=== PATIENT | female | born 1985 | race Caucasian/White ===

== ENCOUNTER → 2018-04-03 15:03 | Outpatient (CLI) | payer SELFPAY ==
[2018-04-03 17:34] LABS: Anion Gap 8 (5-15); BUN 15 mg/dL (7-18); BUN/Creat Ratio 20.8 RATIO (10-20); Calcium,Total 9.1 mg/dL (8.5-10.1); Chloride 104 mmol/L (98-107); Cholesterol 191 mg/dL (200); Creatinine, Serum 0.72 mg/dL (0.55-1.02); EST Glomerular Filtration Rate 101 mL/min (>60); Est Glom Filt Rate - Afr Amer 122 mL/min (>60); Glucose 73 mg/dL (74-106); High Density Lipoprotein 63 mg/dL; Potassium 3.4 mmol/L (3.5-5.1); Sodium Level 138 mmol/L (136-145); Thyroid Stim Hormone (TSH) 0.81 uIU/mL (0.358-3.74); Triglycerides 44 mg/dL; Very Low Density Lipoprotein 9 mg/dL (5-40)
== END ==
PROVIDERS: Family Provider Internal Medicine; PCP Internal Medicine; Visit Provider Family Medicine
DX: Z00.00 Encounter for general adult medical examination without abnormal findings (principal)
CPT/HCPCS: 36415; 80048; 80061; 84443

== ENCOUNTER → 2018-04-13 13:06 | Outpatient (CLI) | payer SELFPAY ==
--- NOTE | 2018-04-13 13:00 | SP.MBSS_ITS ---
PRIMARY / SECONDARY DIAGNOSIS: dysphagia (R13.10) REFERRING PHYSICIAN: Dr. Sebastian Nagel MD CURRENT DIET: regular textures, thin liquids DENTITION: WFL MENTAL STATUS: WNL RESPIRATORY STATUS: O2 via room air PREVIOUS MODIFIED BARIUM SWALLOW STUDY: none REASON FOR REFERRAL: Patient is a 32 year old female referred for a modified barium swallow (MBS) study to objectively assess the Patients oropharyngeal swallow function under fluoroscopy secondary to reported globus sensation occurring during the latter portions of intake, no association with texture. MEDICAL HISTORY: Childhood asthma, mild anxiety, hemophilia (factor 9) STUDY FINDINGS: Patient participated in a Modified Barium Swallow (MBS) study on 04/13/2018. Dr. Rutherford was the radiologist present for this evaluation. This study was recorded in the lateral view and images were sent to PACs for storage. The following consistencies were presented to this patient for analysis of oropharyngeal swallow function: thin liquids, pudding, and a regular textured, Doreen Doone cookie. Results of the MBS are as follows: PENETRATION / ASPIRATION SCALE (SANTIZO): 1 = does not enter airway 2 = enters airway/above vocal folds/ejected 3 = enters airway/above vocal folds/not ejected 4 = enters airway/contacts vocal folds/ejected 5 = enters airway/contacts vocal folds/not ejected 6 = enters airway/below vocal folds/ejected 7 = enters airway/below vocal folds/not ejected despite effort 8 = enters airway/below vocal folds/no effort PENETRATION / ASPIRATION SCALE (SCORE): Thin liquids via cup (single sip): 1 Thin liquids via cup (single sip): 1 Thin liquids via cup (single sip): 1 Thin liquids via cup (sequential swallows): 1 Thin liquids via straw (single sip): 1 Thin liquids via straw (sequential swallows): 1 Pudding via spoon: 1 Regular textured cookie: 1 Thin liquids via straw (sequential swallows): 1 IMPRESSION: DIAGNOSIS: swallow function grossly within normal limits ORAL PHASE CHARACTERIZED BY: LABIAL SEAL: no labial escape TONGUE CONTROL DURING BOLUS MANIPULATION: cohesive bolus between tongue to palatal seal BOLUS PREPARATION / MASTICATION: timely and efficient chewing and mashing BOLUS TRANSPORT / LINGUAL MOTION: brisk tongue motion ORAL RESIDUE: complete oral clearance PHARYNGEAL PHASE CHARACTERIZED BY: INITIATION OF PHARYNGEAL SWALLOW: bolus head at posterior angle of ramus at first hyoid excursion SOFT PALATE ELEVATION: no bolus between soft palate and pharyngeal wall LARYNGEAL ELEVATION: complete superior movement of thyroid cartilage with complete approximation of arytenoids cartilage to epiglottic petiole ANTERIOR HYOID EXCURSION: complete anterior movement EPIGLOTTIC MOVEMENT: complete epiglottic inversion LARYNGEAL VESTIBULE CLOSURE AT HEIGHT OF SWALLOW: complete laryngeal vestibule closure with no air/contrast in laryngeal vestibule PHARYNGEAL STRIPPING WAVE: pharyngeal stripping wave present / complete PHARYNGOESOPHAGEAL SEGMENT OPENING: complete distension and complete duration with no obstruction of flow TONGUE BASE RETRACTION: no contrast between tongue base and posterior pharyngeal wall PHARYNGEAL RESIDUE: complete pharyngeal clearance ESOPHAGEAL PHASE CHARACTERIZED BY: ESOPHAGEAL BOLUS CLEARANCE IN THE UPRIGHT POSITION: complete clearance; esophageal coating DIET TEXTURE RECOMMENDATIONS: Will recommend a regular textured, thin liquid diet. COMPENSATORY STRATEGIES RECOMMENDED: Remain upright for 30-60 minutes post meal (GERD precaution), avoid intake < 3 hours prior to bed (GERD precaution) INTERPRETATION OF RESULTS: The Patient presents with mastication and deglutition abilities found to be grossly within normal limits. No aspiration or penetration appreciated throughout consistencies trialed. Would suspect mild to moderate gastroesophageal reflux based on symptoms reported and lack of oropharyngeal or pharyngoesophageal deficits identified under fluoroscopy. RECOMMENDATIONS: Patient able to comprehend and express recommended intake precautions detailed above with sufficient detail to suggest high likelihood of compliance. Provided brief overview of signs and symptoms of aspiration, with recommendations for the Patient to further discuss symptoms with PCP. No further skilled speech- language services warranted at this time targeting dysphagia. ADDITIONAL COMMENTS/RECOMMENDATIONS: Results and recommendations were discussed with the Patient immediately following MBS completion, with the Patient verbalizing understanding and agreement with all recommendations and education provided. IMAGE COUNT: 927 G-CODES: SWALLOWING G8996 Current Status: SWALLOWING G8997 Goal Status: SWALLOWING G8998 Discharge Status:
--- NOTE | 2018-04-13 13:09 | RAD_ITS ---
STUDY: SWALLOWING STUDY REASON FOR EXAM: Female, 32 years old. Dysphagia. TECHNIQUE: The examination was performed with Speech Pathology in attendance. Under fluoroscopic observation, the patient ingested thin barium, thick barium, barium pudding, and barium coated cracker. FLUOROSCOPY TIME: 0:59 minutes/seconds. 927 images were obtained. RADIOLOGIST INVOLVEMENT: Radiologist was present and providing direct supervision. COMPARISON: None. FINDINGS: The following was observed during swallowing of the various mixtures of barium: Thin Barium: There was no evidence of aspiration or laryngeal penetration. Barium Pudding: There was no evidence of aspiration or laryngeal penetration. Barium Coated Cracker: There was no evidence of aspiration or laryngeal penetration. RAD/Swallowing Function w/Video IMPRESSION: Normal tailored barium swallow study. No evidence of increased risk for aspiration. The swallow study findings were discussed with the patient by the speech pathologist at the conclusion of the examination. Please see speech pathology report for more information and recommendations. Electronically Signed: Taj Rutherford MD at 14:58 EDT Tel [phone], Service support ,
== END ==
PROVIDERS: Family Provider Family Medicine; PCP Family Medicine; Visit Provider Family Medicine
DX: R13.10 Dysphagia, unspecified (principal)
CPT/HCPCS: 74230; 92610; 92611

== ENCOUNTER → 2019-05-12 12:59 | Outpatient (CLI) | payer SELFPAY ==
[2015-12-17 20:00] VITALS: BMI 33.4
[2019-05-12 15:56] LABS: Chlamydia Trachomatis by PCR Negative (Negative); Neisserai gonorrhoeae by PCR Negative (Negative); Probe Check PASS; Sample Adequacy Control PASS; Specimen Processing Control PASS
[2019-05-17 10:30] LABS: HPV Reflexed? NOT INDICATED
== END ==
PROVIDERS: Family Provider Family Medicine; PCP Family Medicine; Referring Provider Obstetrics & Gynecology; Visit Provider Obstetrics & Gynecology
DX: Z12.4 Encounter for screening for malignant neoplasm of cervix (principal); Z11.3 Encounter for screening for infections with a predominantly sexual mode of transmission
CPT/HCPCS: 87491; 87591; 88175; G0145

== ENCOUNTER → 2019-06-09 10:57 | Outpatient (CLI) | payer SELFPAY ==
[2015-12-17 20:00] VITALS: BMI 33.4
[2019-06-09 14:05] LABS: Color, Urine Yellow (Yellow); Glucose, Dipstick Normal (Normal); Ketone-Dipstick Negative (Negative); Leukocyte Esterase-Dipstick Negative /ul (Negative); Nitrite-Dipstick Negative (Negative); Occult Blood-Urine Negative /ul (Negative); Protein-Dipstick Negative (Negative); Specific Gravity, Urine 1.015 (1.002-1.030); Urine Bilirubin Dipstick Negative (Negative); Urine Clarity Cloudy (Clear); Urine Urobilinogen Normal (Normal)
[2019-06-09 14:06] LABS: Absolute Lymphocyte Count 1.38 X10^3/uL (0.83-4.51); Absolute Neutrophil Count 6.4 X10^3/uL (2.0-7.7); Basophil# 0.04 X10^3/uL; Basophil% 0.5 % (0-1); Eosinophil# 0.23 X10^3/uL; Eosinophils% 2.7 % (0-5); Hematocrit 41.2 % (37-47); Hemoglobin 14.1 g/dL (12.0-15.0); Lymphocyte # 1.38 X10^3/ul (4.0); Mean Corp Hgb Conc 34.2 g/dL (32-36); Mean Corpuscular Volume 90.5 fL (81-99); Mean Platelet Vol. 9.3 fl (6.2-12.0); Monocyte# 0.57 X10^3/uL; Monocyte% 6.6 % (0-10); NRBC Flagged by Analyzer 0 % (0-5); Neutrophil # 6.35 X10^3/uL (2.7-7.7); Neutrophil % 73.4 % (47-70); Platelet Count 230 K/mm3 (150-450); RBC Distribution Width CV 12.8 % (11.6-14.6); RBC Distribution Width SD 41.5 fl (35.1-43.9); Red Blood Count 4.55 M/mm3 (4.2-5.4); White Blood Count 8.6 K/mm3 (4.4-11.0)
[2019-06-09 14:20] LABS: Amphetamine Urine VISTA NEGATIVE (<1000 ng/mL); Barbiturate Urine VISTA NEGATIVE (< 200 ng/mL); Benzodiazepine Urine VISTA NEGATIVE (< 200 ng/mL); Cocaine Urine VISTA NEGATIVE (< 300 ng/mL); Ecstacy Urine VISTA NEGATIVE (< 500 ng/mL); Methadone Urine VISTA NEGATIVE (< 300 ng/mL); PCP Urine VISTA NEGATIVE (< 25 ng/mL); THC Urine VISTA NEGATIVE (< 50 ng/mL); Vista UDS pH Range 7
[2019-06-10 10:22] LABS: HIV - WCH Non-Reactive (Nonreactive); Hepatitis B Surface Antigen Non-Reactive (Nonreactive); Hepatitis C Antibody Non-Reactive (Nonreactive)
[2019-06-11 00:54] LABS: Prenatal RPR NONREACTIVE (NONREACTIVE)
== END ==
PROVIDERS: Obstetrics & Gynecology; Visit Provider Obstetrics & Gynecology
DX: Z34.81 Encounter for supervision of other normal pregnancy, first trimester (principal)
CPT/HCPCS: 36415; 80307; 81002; 84443; 85025; 86703; 86762; 86803; 87340

== ENCOUNTER → 2019-09-20 10:36 | Outpatient (CLI) | payer SELFPAY ==
[2015-12-17 20:00] VITALS: BMI 33.4
[2019-09-20 13:16] LABS: Hematocrit 36.1 % (37-47); Mean Corp Hgb Conc 33.2 g/dL (32-36); Mean Corpuscular Hgb 30.5 pg (27.0-32.0); Mean Corpuscular Volume 91.6 fL (81-99); Mean Platelet Vol. 8.9 fl (6.2-12.0); Platelet Count 214 K/mm3 (150-450); RBC Distribution Width CV 12.5 % (11.6-14.6); RBC Distribution Width SD 41.4 fl (35.1-43.9); Red Blood Count 3.94 M/mm3 (4.2-5.4); White Blood Count 7.9 K/mm3 (4.4-11.0)
[2019-09-20 13:23] LABS: Glucose Challenge Gest 1H 50g 122 mg/dL (70-140)
== END ==
PROVIDERS: Visit Provider Obstetrics & Gynecology
DX: Z34.83 Encounter for supervision of other normal pregnancy, third trimester (principal)
CPT/HCPCS: 36415; 82950; 85027; 86850

== ENCOUNTER → 2019-11-16 | Outpatient (CLI) | payer SELFPAY | END | disposition home or self-care (01) | LOC: LABSPEC 13:33 | PROVIDERS: Visit Provider Obstetrics & Gynecology | DX: Z36.85 Encounter for antenatal screening for Streptococcus B (principal) | CPT/HCPCS: 87081 ==

== ENCOUNTER 2019-12-06 21:49 | Inpatient (IN) | payer SELFPAY, OTHER ==
[2015-12-17 20:00] VITALS: BMI 33.4
[2019-12-06 21:35] VITALS: BMI 35.0
[2019-12-06 21:47] LABS: ROM Internal Control Test YES-OK TO RESULT pt. (Internal QC)
[2019-12-06 21:48] LABS: ROM Patient Test POSITIVE (Negative)
[2019-12-06] MEDS: Lactated Ringers 1,000 ML 200 ML IV (22:30)
[2019-12-06 23:01] LABS: Absolute Lymphocyte Count 1.68 X10^3/uL (0.83-4.51); Absolute Neutrophil Count 6.4 X10^3/uL (2.0-7.7); Basophil# 0.02 X10^3/uL; Basophil% 0.2 % (0-1); Eosinophil# 0.03 X10^3/uL; Eosinophils% 0.3 % (0-5); Hematocrit 36.5 % (37-47); Hemoglobin 11.7 g/dL (12.0-15.0); Lymphocyte # 1.68 X10^3/ul (4.0); Lymphocyte % 19.1 % (19-41); Mean Corp Hgb Conc 32.1 g/dL (32-36); Mean Corpuscular Hgb 28.6 pg (27.0-32.0); Mean Corpuscular Volume 89.2 fL (81-99); Mean Platelet Vol. 8.9 fl (6.2-12.0); Monocyte# 0.55 X10^3/uL; Monocyte% 6.3 % (0-10); NRBC Flagged by Analyzer 0 % (0-5); Neutrophil # 6.41 X10^3/uL (2.7-7.7); Neutrophil % 73.1 % (47-70); Platelet Count 195 K/mm3 (150-450); RBC Distribution Width CV 15.9 % (11.6-14.6); RBC Distribution Width SD 50.9 fl (35.1-43.9); Red Blood Count 4.09 M/mm3 (4.2-5.4); White Blood Count 8.8 K/mm3 (4.4-11.0)
[2019-12-06] MEDS: 0.9% Saline Lock 10 ML Syringe IV (23:19)
[2019-12-07] VITALS (10 sets, daily range): BP systolic 104–129; BP diastolic 56–76; PULSE 90–109; RESP 18; TEMP 36.6–36.9
[2019-12-07] MEDS: Lactated Ringers 500 ML 999 ML IV ×3 (00:40→03:51)
[2019-12-07] MEDS: fentaNYL-bupivacaine (epidural) 100 ML BAG EPIDURAL ×2 (01:36→06:46)
[2019-12-07] MEDS: Ondansetron 4 MG/2 ML Vial IV (02:11)
[2019-12-07] MEDS: Lactated Ringers 1,000 ML 200 ML IV (06:46)
--- NOTE | 2019-12-07 07:37 | HP.PCM_ITS ---
History and Physical Date of Admission: 12/07/19 [facility] [place] ANTEPARTUM RECORD - HISTORY AND PHYSICAL (12/07/2019) Name: CLAIRE FRIAS History of This : This is a 34-year-old 2 para 1 who presents in active labor with spontaneous rupture membranes at 39+ weeks gestation. care is unremarkable except the has hemophilia as do 4 of his brothers. OB Physician: NITA 's Physician: EVELIA Johnson.................................................................... : 1985 Age: 34 Address: [address] [place] [address] Phone: (h) [phone] ([phone] Insurance Carrier: Emergency Contact: MARTÍN FRIAS [phone] ...................................................................... Final PASCUAL: 12/10/19 By Ultrasound: 13 weeks 5 days PARITY: (G-Total Pregnancies P-Fullterm,Premature,Induced AB,Spont AB, Ectopics, Multiple,Living) PASCUAL CONFIRMATION: By LMP: 03/05/19 Initial Exam: 12/10/19 By First Ultrasound Exam: 12/09/19 Final PASCUAL: 12/10/19 OB PROBLEM LIST: Declines AFP and CF. A NEGATIVE RhoGAM at 28-29 wks. given 10/11/15 has Hemophilia, as do 4 of his brothers Pt has a 1st cousin with Angelman Syndrome ALLERGIES: No Known Drug Allergies MEDICATIONS: 28 mg iron-800 mcg tablet daily ProAir HFA 90 mcg/actuation aerosol inhaler Two puffs every four hours as needed Prozac 10 mg capsule One pill by mouth once a day SOCIAL HISTORY: Smoking - Never Alcohol Use - denies drinking not while and RARELY not while Diet - balanced Diet, caffeine < 2 drinks per day and Water intake tries for 8 glasses daily. Lifestyle - low stress lifestyle and Exercise - Active w home, family, mowing. Enc 20 min walking daily. Employer - [employer] Job Description - Illicit Drug Use - denies use of street drugs Sexual Activity - Residence - lives with Place of - [place], [place] Spouse-Sig Other Name - Martín Spouse-Sig Other Occupation - Self-employed (fencing) Spouse-Sig Other Phone No - [phone] Children Name(s) - Elizabeth (JACE) PRIOR DELIVERY HISTORY DEL DATE GEST LAB WT LB WT OZ TYPE ANES LABOR TX 07 Dec 16 39 24 7 2 Vag Epidural No ANTEPARTUM FLOW CHART VISIT GE RTC FU F F AZ U U DATE WK MD WKS HT PN HR M SS BP ED WT AZ GL D EF ST __ ____ ___ __ __ ___ __ __ __ ___ __ __ __ ___ __ 18 Nov JMW 1 38 V + + 114/78 sl 184 tr - S Nov JMW 1 37 V + + 118/78 sl 182 tr - 2+ 75 -2 04 Nov 36 JMW 1 36 V + + 120/68 sl 182 tr - ft 50 P Oct JMW 1 35 + + 110/72 tr 183 - - Oct JMW 2 33 + + 108/64 sl 176 - - Oct 12 JMW 2 31 + + 122/68 sl 173 tr - Oct 09 ELB 2 28 - + + 124/80 173 tr - Sep 05 ELB 4 24 - + + 120/80 0 164 - - Jul 31 ELB 4 - V U+ + 126/74 0 158 - - May 25 JMW 6 14 + US 104/64 0 144 - - ANTEPARTUM NOTE(S): Nov 30 2019: Ctxs-occas, Good FM Nov 23 2020: Ctxs-mild, Low Pressure Nov 16 2019: Doing Well, GBS today, LARC signed Nov 09 2019: Ctxs-occas, Good FM Oct 26 2019: Doing Well, Good FM Oct 12 2019: see progress note Sep 20 2019: Aug 23 2019: feeling well. Glucola given. Jul 21 2019: Sono Today,Feeling Well,Good FM Jun 09 2019: Nausea Better,Periodic Fatigue COMPREHENSIVE ANTEPARTUM NOTE(S): Nov 22 2019: H taken to OB. tkg Nov 19 2019: GBS negative. - CH Oct 12 2019: Claire presents for her PNV. She is reporting +FM and only sl swelling in her lower extremities. Pt is c/o enlarged and painful vericosoties in her groin area. I discussed wearing full length support stockings to help alleviate some of the pressure. JT Sep 21 2019: Glucola 122 Hgb 12.0 g/dl EB Sep 20 2019: Rhogam given today. LMT Sep 20 2019: Encouraged TdaP and flu vaccines. 28 wk labs done today and RhoGAM given. May chose to see Dr Koenig in [place] for appts. Reviewed option for CNM vs MD. RTO in 2 wk for PNV. EB Jul 21 2019: Reviewed NOB labs from last visit. RTO in 4 wk for PNV. EB Jun 10 2019: A NEG Hgb 14.1 g/dl. EB Jun 09 2019: Claire is here for NOB nurse visit with PASCUAL 12-10-19 planning a vag del at [facility] with epidural, using Dr Rivera for post disch ped care and is undecided about feeding method but leaning towards formula. 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 Their daughter, Elizabeth is 3 1/2 years old, born at [facility] after a 24 h labor and 3 h of pushing. Claire had an induction for oligo. Elizabeth had fluid in her lungs and was in NICU for 3 days. was a disaster. Claire was very frustrated and weaned. Office Class discussed and info given. Claire is a lifetime non smoker, denies street drug use, rarely drinks alcohol and not in pg. Her diet is balanced and she tries for about 8 glasses of water daily and occ drinks pop. She is active with her family, chores and mowing. Enc to walk 20 min daily. She has NKA to drugs, food, latex. She does have seasonal allergies for which she takes Claritin prn and an albuterol inhaler if she starts wheezing. She says usually the Claritan helps her sinus drainage and prevents wheezing. Genetic Screening form completed noting her and 4 brothers have hemophilia. She declines AFP and CF tests. Warning signs in pg reviewed as well as reaching the office after hours, otc meds ok to take, lifting restriction of 20-25#, wearing seatbelt ALWAYS regardless of position in a vehicle and low on her abdomen, importance of protein in diet with understanding voiced. She has a copy of What to Expect. Claire's medical history includes anxiety, asthma re to allergies, chickenpox. They have no cats but she is aware of litter box issues. US done today and routine labs drawn. Enc to call w any concerns. Visit lasted approx 45 min. Jeremías FALCON. NEW May 17 2019: Pap WNL. EB May 12 2019: Claire is being seen for missed menses appt. UPT in office is positive. LMP 5-24-19. Pt is baout 9 weeks and 5 days. PASCUAL 12-10-20. Pt is due for pap and cultures today, Last pap 2014 WNL. Pt is taking . Medications and allergies are up to date. Pt has been struggling with nausea, vomiting 1-2 times a day. information gone over. AM May 12 2019: GC and chlamydia NEG. EB REVIEW OF SYSTEMS: GENERAL - Denies fever, or chills SKIN - Denies rash, new skin lesions, or change in moles EYES - Denies blurred vision, or change in visual acuity EARS - Denies ear pain, or difficulty hearing NOSE - Denies nasal congestion, discharge, or bleeding MOUTH - Denies sore throat, or difficulty swallowing NECK - Denies pain or swelling RESPIRATORY - Denies shortness of breath, cough, wheezing CARDIOVASCULAR - Denies palpitations, chest pain, orthopnea, PND, peripheral edema, syncope or claudication GASTROINTESTINAL - Denies nausea, vomiting, diarrhea, constipation, Denies abdominal pain, melena and or bright red blood GENITOURINARY - Denies dysuria, frequency of urination, urgency, or hesitancy MUSCULOSKELETAL - Denies joint or muscle pain, or back pain NEUROLOGICAL - Denies localized numbness, weakness, or tingling PSYCHIATRIC - Denies depression, anxiety, substance abuse or suicide attempts ENDOCRINE - Denies heat or cold intolerance, weight loss or gain, increasing thirst HEMATO-IMMUNOLOGIC - Denies easy bruising, bleeding, oral ulcerations or recurrent infections GENETICS SCREENING: Age 35+ years: No Thalassemia: No Neural Tube Defect: No Down Syndrome: No PRAMOD-SACHS: No Sickle Cell Disease: No Hemophilia: Yes, Musc. Dystrophy: No Cystic Fibrosis: No-declines screening Moi Chorea: No Mental Retardation: No Fragile X: No Other genetic: No Other defects: No SABs/still births: No Drugs since LMP: Yes Comments: : 4 brothers, hemophillia INFECTION HISTORY: High risk AIDS: No High risk Hepatitis: No Exposed to TB: No Exposed to Herpes: No Rash/viral illness since LMP: No History of STD: No MENSTRUAL HISTORY: *Menses Amount/Duration: 4-5 DAYSMenses Regularity: RegularFrequency: monthlyMenarche (Age Onset): 14* PAST SUMMARY: PARITY: 1. Total Pregnancies............ 2 2. Full Term Pregnancies........ 1 3. Premature.................... 0 4. Abortions - Induced.......... 0 5. Abortions - Spontaneous...... 0 6. Ectopics..................... 0 7. Multiple Births.............. 0 8. Living Children.............. 1 PAST #1: Date of :.................. 12/18/15 Gestation Weeks:................ 39 Length of labor(hours):......... 24 Sex:............................ F Weight-lbs:............... 7 Weight-oz:................ 2 Type of Delivery:............... Vag Type of Anesthesia:............. Epidural Place of Delivery:.............. [place] Treatment of Labor?:.... No Comment: LOW FLUID,3DNICU PHYSICAL EXAMINATION General Appearence: 34 yo female in no acute distress Vital Signs: AF, VSS Heart: RRR without rubs or gallops Lungs: CTA x 2 Breasts: deferred Abdomen: gravid Pelvis: Cervix: 1-2, 50% effaced Presentation: cephalic Station: -2 Fetus: Size: AGA Movement: present Heart: present Labs for : CLAIRE FRIAS since 03/15/2019 ORDER DATEIN DESCRIPTION VALUE UNITS RANGE A+ COMMENT TYPE AND SCREEN 12/06/19 Reason for Type AND Screen/Red Cells: ROUTINE [facility]~[address] [place], [address]~ BLOOD TYPE GEL A NEGATIVE N ANTIBODY SCREEN NEGATIVE N CBC W/DIFF, AUTOMATED 12/06/19 NOTE Original Ordering Provider: Ben Koenig WBC 8.8 K/mm3 4.4-11.0 RBC 4.09 M/mm3 4.2-5.4 L HGB 11.7 g/dL 12.0-15.0 L HCT 36.5 % 37-47 L MCV 89.2 fL 81-99 MCH 28.6 pg 27.0-32.0 MCHC 32.1 g/dL 32-36 RDW CV 15.9 % 11.6-14.6 H RDW SD 50.9 fl 35.1-43.9 H PLT 195 K/mm3 150-450 MPV 8.9 fl 6.2-12.0 NEUT% 73.1 % 47-70 H LY% 19.1 % 19-41 MONO% 6.3 % 0-10 EO% 0.3 % 0-5 BASO% 0.2 % 0-1 IM GRAN % 1.000 % 0.0-0.9 H IG% - Immature Granulocytes (promyelocytes, myelocytes and metamyelocytes) > 1% indicates that a LEFT SHIFT is Present. ABSOLUTE NEUT 6.4 X10 3/uL 2.0-7.7 ABSOLUTE LYMPH 1.68 X10 3/uL 0.83-4.51 NRBC, FLAGGED 0 % 0-5 (ROM) RUPTURE OF MEMBRANES 12/06/19 NOTE Original Ordering Provider: Ben Koenig ROM POSITIVE Negative H Amniotic fluid present indicates rupture of Membranes. RESULTS CALLED TO [facility] 12/06/19 Anna7 Clarita Mcknight. REPORT READ BACK BY SAME . CULTURE, GROUP B STREPTOCOCCUS 11/16/19 NOTE Original Ordering Provider: Ben Koenig Comments: VAGINAL/RECTAL GIFTY Culture Group B Beta Streptococcus is not isolated. Reviewed by IDALIA ANTIBODY SCREEN 09/20/19 [facility]~[address] [place], [address]~ ANTIBODY SCREEN NEGATIVE N Reviewed by PALAK egan GLUCOSE CHALLENGE GEST 1H 50G 09/20/19 NOTE Original Ordering Provider: Palak Crespo GLU GEST 50G 1H 122 mg/dL 70-140 Reviewed by PALAK CBC-COMPLETE BLOOD CNT NO DIFF 09/20/19 NOTE Original Ordering Provider: Palak Crespo WBC 7.9 K/mm3 4.4-11.0 RBC 3.94 M/mm3 4.2-5.4 L HGB 12.0 g/dL 12.0-15.0 HCT 36.1 % 37-47 L MCV 91.6 fL 81-99 MCH 30.5 pg 27.0-32.0 MCHC 33.2 g/dL 32-36 RDW CV 12.5 % 11.6-14.6 RDW SD 41.4 fl 35.1-43.9 PLT 214 K/mm3 150-450 MPV 8.9 fl 6.2-12.0 Reviewed by PALAK RPR 06/09/19 NOTE Original Ordering Provider: Palak Crespo RPR NONREACTIVE NONREACTIVE Reviewed by PALAK HEPATITIS C ANTIBODY 06/09/19 NOTE Original Ordering Provider: Palak Crespo HEPATITIS C AB Non-Reactive Nonreactive w Non Reactive: < 0.8 Equivocal: >/= 0.8 to < 1.0 Reactive: >/= 1.0 The CDC recommends that a reactive/equivocal HCV antibody result be followed up by the HCV Nucleic Acid Amplification test (991997) Reviewed by PALAK HEPATITIS B SURFACE ANTIGEN 06/09/19 NOTE Original Ordering Provider: Palak Crespo HEPB SURFACE AG Non-Reactive Nonreactive Reviewed by PALAK HIV - [facility] 06/09/19 NOTE Original Ordering Provider: Palak Crespo HIV - [facility] Non-Reactive Nonreactive Reviewed by PALAK RUBELLA IGG 06/09/19 NOTE Original Ordering Provider: Palak Crespo RUBELLA IGG 276.0 IU/mL Antibody results Interpretation of Immune Status < 5 IU/ml Presumed Non-immune 5 - < 10 IU/ml Equivocal > or = 10 IU/ml Presumed Immune Reviewed by PALAK T AND S-NO CHARGE W/PNP 06/09/19 Reason for Type AND Screen/Red Cells: Surgery? N [facility]~[address] [place], [address]~ BLOOD TYPE GEL A NEGATIVE N AB SCREEN GEL NEGATIVE N Reviewed by PALAK THYROID STIM HORMONE (TSH) 06/09/19 NOTE Original Ordering Provider: Palak Crespo TSH 1.30 uIU/mL 0.358-3.74 Reviewed by PALAK URINE DRUG SCREEN (VISTA) 06/09/19 NOTE Original Ordering Provider: Palak Crespo TO BE CONFIRMED CONFIRMATORY TESTING FOR ALL POSITIVE URINE DRUG SCREEN RESULTS WILL ONLY BE SENT OUT UPON PHYSICIAN ORDER. VISTA Urine Drug Screen methods provide only preliminary analytical test results. A more specific alternate chemical method must be used in order to obtain a confirmed analytical result. Gas chromatography/mass spectrometery (GC/MS) is the preferred confirmatory method. Clinical consideration and professional judgement should be applied to any drug of abuse test result, particularly when preliminary positive results are used. URINE TCA TESTING MUST BE ORDERED SEPARATELY. USE TEST MNEMONIC: [facility]IST[facility] UDS PH 7 AMPHETAMINES NEGATIVE <1000 ng/mL BARBITIURATES NEGATIVE < 200 ng/mL BENZODIAZIPINE NEGATIVE < 200 ng/mL COCAINE NEGATIVE < 300 ng/mL ECSTACY NEGATIVE < 500 ng/mL METHADONE NEGATIVE < 300 ng/mL OPIATES NEGATIVE < 300 ng/mL PCP NEGATIVE < 25 ng/mL THC NEGATIVE < 50 ng/mL Reviewed by PALAK CBC W/DIFF, AUTOMATED 06/09/19 NOTE Original Ordering Provider: Palak Crespo WBC 8.6 K/mm3 4.4-11.0 RBC 4.55 M/mm3 4.2-5.4 HGB 14.1 g/dL 12.0-15.0 w HCT 41.2 % 37-47 MCV 90.5 fL 81-99 MCH 31.0 pg 27.0-32.0 MCHC 34.2 g/dL 32-36 RDW CV 12.8 % 11.6-14.6 RDW SD 41.5 fl 35.1-43.9 PLT 230 K/mm3 150-450 MPV 9.3 fl 6.2-12.0 NEUT% 73.4 % 47-70 H LY% 16.0w % 19-41 L MONO% 6.6 % 0-10 EO% 2.7 % 0-5 BASO% 0.5 % 0-1 IM GRAN % 0.800 % 0.0-0.9 IG% - Immature Granulocytes (promyelocytes, myelocytes and metamyelocytes) > 1% indicates that a LEFT SHIFT is Present. ABSOLUTE NEUT 6.4 X10 3/uL 2.0-7.7 ABSOLUTE LYMPH 1.38 X10 3/uL 0.83-4.51 NRBC, FLAGGED 0 % 0-5 Reviewed by PALAK URINALYSIS, ROUTINE (DIPSTICK) 06/09/19 NOTE Original Ordering Provider: Palak Crespo COLOR Yellow Yellow CLARITY Cloudy Clear GLUCOSE, UR Normal mg/dl Normal BILIRUBIN URINE Negative mg/dL Negative KETONE UR Negative mg/dl Negative SP.GR. DIPSTX 1.015 1.002-1.030 PH UR 8.0 5.0 - 8.0 PROT DIPSTX Negative mg/dl Negative UROBILI Normal mg/dl Normal NITRITE UR Negative Negative OCCULT BLOOD-UR Negative /ul Negative LEUK ESTERASE Negative /ul Negative Reviewed by PALAK Reviewed by BLADIMIR Frazier W/RFX HRHPV 05/12/19 NOTEw Original Ordering Provider: Palak Crespo DIAGN . NEGATIVE FOR INTRAEPITHELIAL LESION OR MALIGNANCY. ADEQ . Satisfactory for evaluation. Endocervical and/or squamous metaplastic cells (endocervical component) are present. PERFORM . Apoorva Little Optical Mechanic (ASCP) TEST METHOD . This liquid based ThinPrep(R) pap test was screened with the use of an image guided system. COMM . . PAPSMR . The Pap smear is a screening test designed to aid in the detection of premalignant and malignant conditions of the uterine cervix. It is not a diagnostic procedure and should not be used as the sole means of detecting cervical cancer. Both false-positive and false-negative reports do occur. HPV RFLX . The HPV DNA reflex criteria were not met with this specimen result therefore, no HPV testing was performed. Performed at: - [address] [id number] Electroplater: Eladia Delacruz MD, Phone: [phone] Reviewed by PALAK MONACO/ANASTACIO [facility] BY PCR 05/12/19 NOTE Original Ordering Provider: Palak [facility] PCR Negative Negative NG BY PCR Negative Negative Reviewed by PALAK Impression /Plan: 39+ week intrauterine in early active labor. Preparations in progress for delivery.
[2019-12-07] MEDS: Oxytocin 30 units/NS 500 ml 30 UNITS/500 ML IV.SOLN 334 UNITS IV (08:19)
--- NOTE | 2019-12-07 08:29 | OP.PCM_ITS ---
Vaginal Delivery Maternal Presentation: Active Labor Amniotic Membrane Rupture Type: Spontaneous at home Amniotic Fluid Description: Clear Final PASCUAL: 12/10/19 Final PASCUAL Source: US <20 weeks Gestational age: 39 Weeks and 4 Days Date of Procedure: 12/07/19 Pre-Operative Diagnosis: IUP Post-Operative Diagnosis: IUP Surgery/ Procedure Performed: Spontaneous Vaginal Delivery Type of Anesthesia: Epidural Description of Procedure: Spontaneous vaginal delivery of a viable female with Apgars of 9/9 from an occiput anterior presentation with clear amniotic fluid and normal three- vessel placenta. Cord tangled around body and feet of baby. No episiotomy. First-degree midline laceration repaired with 3-0 Rapide suture under epidural. Sponges okay. Delivery physician: Ben Koenig MD. Presentation: Vertex Placental Delivery Description: Spontaneous Placenta Disposition: [facility] Cord Vessel Description: 3 Vessels Cord Entanglement: - - Cord tangled around feet and body of baby. Estimated Blood Loss: 250 cc A gender: Female (1 minute): 9 (5 minute): 9 Episiotomy Description: None Laceration: Midline, Perineal Extension/lac, 1st degree Medications given after delivery: IV Pitocin Complications: None
--- NOTE | 2019-12-07 08:32 | DCINST_ITS ---
<Ben Koenig - Last Filed: 12/07/19 08:32> Discharge Diet: No Restrictions Discharge Activity: May not drive while taking narcotic pain medications., May Shower, May Take a Tub Bath May resume sexual activity in: 4-6 weeks Additional Activity Instructions:: Nothing in the vagina for 4-6 weeks. You may return to work/school in 6 weeks. Call your doctor if you observe: Fever of 101 or Higher, Inability to urinate, Inability to have a bowel movement, Using more than one pad per hour Instructions: After a Vaginal , Understanding Depression Additional Instructions: If you experience any of the following, contact your healthcare provider. * Bleeding that soaks a pad every hour for 2 hours * Fever 100.4 or higher * Unrelieved incision or abdominal pain * Swelling, redness, discharge or bleeding from your incision or episiotomy site * Your incision begins to separate * Problems urinating (including inability to urinate or burning while urinating). * Visual changes * Severe headache * Flu-like symptoms * Pain or redness in one of both of your breasts * Pain, warmth, tenderness or swelling in your legs, especially the calf area * Frequent nausea and vomiting * Symptoms of depression or anxiety If you experience any of the following, call 911 or go to the nearest Emergency Room. * Chest pain * Problems breathing * Seizure activity * Partial or complete paralysis of a body part, slurred speech, weakness or drooping of the face, or a sudden inability to walk or hold your balance Allergies/Adverse Reactions: Allergies No Known Allergies Allergy (Verified 12/06/19 21:35) Medications to take at Discharge Vits [Prenatabs FA] 1 tablet PO DAILY 12/17/15 Please Follow Up With: Ben Koneig MD - [phone] When: Call to make an appointment with your doctor in 6 weeks. Test Results: Test results from this visit will be discussed in further detail at your follow- up appointment, if applicable. <Magi Hummel - Last Filed: 12/08/19 08:53> Additional Instructions: If you experience any of the following, contact your healthcare provider. * Bleeding that soaks a pad every hour for 2 hours * Fever 100.4 or higher * Unrelieved incision or abdominal pain * Swelling, redness, discharge or bleeding from your incision or episiotomy site * Your incision begins to separate * Problems urinating (including inability to urinate or burning while urinating). * Visual changes * Severe headache * Flu-like symptoms * Pain or redness in one of both of your breasts * Pain, warmth, tenderness or swelling in your legs, especially the calf area * Frequent nausea and vomiting * Symptoms of depression or anxiety If you experience any of the following, call 911 or go to the nearest Emergency Room. * Chest pain * Problems breathing * Seizure activity * Partial or complete paralysis of a body part, slurred speech, weakness or drooping of the face, or a sudden inability to walk or hold your balance When: If increased vaginal edema/pain to call Friday Test Results: Test results from this visit will be discussed in further detail at your follow- up appointment, if applicable.
--- NOTE | 2019-12-07 09:08 | NURSING ---
Dr. Koenig cut indwelling urinary catheter and removed it at this time.
--- NOTE | 2019-12-07 09:13 | NURSING ---
Dr. Koenig removed catheter at this time as pt delivered and epidural pump turned off.
[2019-12-07] MEDS: Acetaminophen 500 MG Tablet 1000 MG PO (23:44)
[2019-12-08 04:47] VITALS: BP 132/85; PULSE 78; RESP 16; TEMP 36.2
[2019-12-08 07:56] VITALS: BP 119/77; PULSE 83; RESP 16; TEMP 36.5
--- NOTE | 2019-12-08 08:44 | PCM.PN.OB ---
Subjective: Feeling well overall. Reports +flatus. Soreness in the vaginal area, otherwise no pain. Is bottle feeding with no concerns. Wants to discharge. Objective: VSS. Fundus u/1. Lochia rubra mild. Left labia +2 edema with right labia +1 edema. - Physical Exam Vitals/I&O's: Vital Signs Temp Pulse Resp BP 97.7 F L 83 16 119/77 12/08/19 07:56 12/08/19 07:56 12/08/19 07:56 12/08/19 07:56 Oxygen Delivery Method Room Air Weight: 84.1 kg Body Mass Index (BMI) 35.0 Intake and Output for Last 24 Hours 12/06/19 12/07/19 12/08/19 23:59 23:59 23:59 Intake Total 163.33 / 163.33 3632.85 / 3632.85 Output Total 1750 / 1750 Balance 163.33 / 163.33 1882.85 / 1882.85 General: Alert, Oriented x3, Cooperative HEENT: Atraumatic, PERRLA, EOMI, Normocephalic Neck: Supple, No JVD, Negative Carotid Bruits Lungs: Clear to auscultation, Normal air movement Cardiovascular: Regular rate, No murmurs Abdomen: Bowel Sounds Present, Soft, Non Tender, Passing Flatus Extremities: No edema, Capillary Refill Less than 3 Seconds Skin: No rashes, No breakdown, Incision - perineal repair, - - labial edema +2 left, +1 right Musculoskeletal: No Tenderness to Palpation of Joints or Extremities Neurological: Cranial nerves II-XII grossly intact Psych/Mental Status: Normal Affect, Appropriate Current Medications Acetaminophen (Tylenol) 1,000 mg PO Q8H PRN PRN PRN Reason: Pain Score 1-3/10 Last Admin: 12/07/19 23:44 Dose: 1,000 mg Documented by: Bisacodyl (Dulcolax) 10 mg RECTAL UD PRN PRN Reason: If no BM Dibucaine (Dibucaine) 1 applic TOPICAL TID PRN PRN; Protocol PRN Reason: Discomfort Hydrocortisone (Hytone) 1 applic TOPICAL TID PRN PRN; Protocol PRN Reason: Discomfort Ibuprofen (Motrin) 600 mg PO Q6H PRN PRN PRN Reason: Pain Score 1-3/10 Methylergonovine Maleate (Methergine) 0.2 mg IM X1 PRN PRN Reason: Excess bleeding/uterine atony Ondansetron HCl (Zofran) 4 mg IV Q4H PRN PRN PRN Reason: Nausea Senna/Docusate Sodium (Senokot-S, Juanita-Colace) 1 - 2 tablet PO DAILY PRN PRN PRN Reason: Constipation Simethicone (Mylicon) 80 mg PO PCHS PRN PRN Reason: Indigestion/Stomach pain Sodium Chloride () 5 - 15 ml IV UD PRN PRN Reason: SALINE FLUSH Zolpidem Tartrate (Ambien (Generic)) 5 mg PO QHS PRN PRN PRN Reason: Insomnia Medical Necessity - Tobacco Use Smoking Status: Never smoker Assessment/Plan 34y old post vaginal delivery day #1 Stable course with normal involution and lochia rubra Bottle feeding infant daughter Labial edema, +2 left, +1 right. Using ice packs and encouraged Motrin/Ibuprofen every 6 hours Education on PPD, engorgement & allowing milk to dry up, and care for increased labial edema To call Friday if edema if getting worse or not better Discharge home today
== END 2019-12-08 11:30 | disposition home or self-care (01) | DRG 807 ==
LOC: WPOUT 21:51 → WP 21:51
PROVIDERS: Admitting Provider Obstetrics & Gynecology; Referring Provider Obstetrics & Gynecology; Visit Provider Obstetrics & Gynecology
DX: O42.02 Full-term premature rupture of membranes, onset of labor within 24 hours of rupture (principal); Z37.0 Single live birth; O69.89X0 Labor and delivery complicated by other cord complications, not applicable or unspecified; O70.0 First degree perineal laceration during delivery; Z3A.39 39 weeks gestation of pregnancy
CPT/HCPCS: 59025; 59050; 84112; 85025; 86850; 86900; 86901; 99218; J7120; A4216; G0378; J2405

== ENCOUNTER → 2023-03-03 | Outpatient (CLI) | payer SELFPAY ==
[2023-03-03 15:41] LABS: Absolute Neutrophil Count 2.4 X10^3/uL (2.0-7.7); Basophil# 0.02 X10^3/uL; Basophil% 0.4 % (0-1); Eosinophil# 0.02 X10^3/uL; Eosinophils% 0.4 % (0-5); Hematocrit 40.2 % (37-47); Hemoglobin 13.9 g/dL (12.0-15.0); Lymphocyte % 45.8 % (19-41); Mean Corp Hgb Conc 34.6 g/dL (32-36); Mean Corpuscular Hgb 30.1 pg (27.0-32.0); Mean Platelet Vol. 9.1 fl (6.2-12.0); NRBC Flagged by Analyzer 0 % (0-5); Neutrophil # 2.37 X10^3/uL (2.7-7.7); Neutrophil % 47.2 % (47-70); POSITIVE MORPHOLOGY YES; Platelet Count 210 K/mm3 (150-450); RBC Distribution Width CV 11.9 % (11.6-14.6); RBC Distribution Width SD 38.2 fl (35.1-43.9); Red Blood Count 4.62 M/mm3 (4.2-5.4)
[2023-03-03 15:51] LABS: AST(SGOT) 58 U/L (15-37); Alanine Aminotransfer ALT/SGPT 147 U/L (13-56); Albumin, Serum 3.8 g/dL (3.2-5.0); Alkaline Phosphatase 53 U/L (45-117); Anion Gap 7 (5-15); BUN 13 mg/dL (7-18); BUN/Creat Ratio 21.8 RATIO (10-20); Calcium,Total 9.2 mg/dL (8.5-10.1); Chloride 103 mmol/L (98-107); EST Glomerular Filtration Rate 122 mL/min (>60); Est Glom Filt Rate - Afr Amer 147 mL/min (>60); Globulin 3.7 g/dL (2.2-4.2); Glucose 85 mg/dL (74-106); Potassium 3.5 mmol/L (3.5-5.1); Protein, Total 7.5 g/dL (6.4-8.2); Sodium Level 138 mmol/L (136-145)
[2023-03-03 15:56] LABS: Differential Indicated SCAN CRITERIA MET
[2023-03-03 16:26] LABS: Atypical Lymphocyte 2+ %; Reactive Lymphocyte 1+
[2023-03-03 16:27] LABS: Anisocytosis RARE; Platelet Estimate ADEQUATE (ADEQ); Red Cell Morphology N CHROM NORMAL (NORM C&C)
== END | disposition home or self-care (01) ==
LOC: MTLAB 11:38
PROVIDERS: PCP Family Medicine; Referring Provider Family Medicine; Visit Provider Family Medicine
DX: R21 Rash and other nonspecific skin eruption (principal)
CPT/HCPCS: 36415; 80053; 85025; 86140; 86618

== ENCOUNTER → 2023-11-26 | Outpatient (CLI) | payer SELFPAY ==
--- OUTSIDE RECORDS SUMMARY | 2023-11-26 12:10 | XMS RPT_ITS | CCD ---
Author Name Unknown Address [id number] [place] [address] Organization [facility] Care Team Providers Care Hand Reamer Name Role Phone Corine Sims Unavailable GoldenKassandra Unavailable Modesta Gutiérrez Unavailable Unavailable Unavailable Unavailable Allergies Allergy Classification Reported Allergen(s) Allergy Type Date of Onset Reaction(s) Facility NEGATED: Highlighted row has been ruled out! (1 source) allergy to substance [facility] Work Phone: NEGATED: Highlighted row has been ruled out! (1 source) drug allergy [facility] Work Phone: Medications Completed/Discontinued Medications Medication Drug Class(es) Dates Sig (Normalized) Sig (Original) 200 actuat albuterol 0.09 mg/actuat metered dose inhaler (1 source) beta2-Adrenergic Agonist Start: 03-18-2017 ProAir HFA 108 (90 Base) MCG/ACT Inhalation Aerosol Solution 2 (two) Puff Puff tid or qid prn for 0 days Quantity: 1 {Inhaler} Refills: 1 Ordered: 18-Mar-2017 Modesta Gutiérrez LPN Start : 18-Mar-2017 Active 24 hr ALPRAZolam 0.5 mg extended release oral tablet (1 source) Benzodiazepine Start: 08-19-2017 take 1 tablet by mouth every eight hours as needed for anxiety Xanax XR 0.5 MG Oral Tablet Extended Release 24 Hour 1 (one) Tablet Tablet q8hrs prn anxiety for 0 days Quantity: 10 {Tablet} Refills: 0 Ordered: 19-Aug-2017 Modesta Gutiérrez LPN Start : 19-Aug-2017 Active amoxicillin 875 mg oral tablet (1 source) Penicillin-class Antibacterial Start: 04-20-2010 End: 12-03-2010 take 1 tablet by mouth twice daily AMOXICILLIN, 875MG (Oral Tablet) 1 Tablet bid for 0 days Quantity: 20 {Tablet} Refills: 0 Ordered: 03-Dec-2010 Nafisa Thomas Start : 20-Apr-2010 End : 03-Dec-2010 Inactive citalopram 10 mg oral tablet (1 source) Serotonin Reuptake Inhibitor Start: 12-03-2010 End: 03-18-2017 take 0.5 tablet by mouth once daily CeleXA 10 MG Oral Tablet 1/2 tab Tablet qd for 0 days Quantity: 30 {Tablet} Refills: 3 Ordered: 18-Mar-2017 Miguelina Salcedo Start : 03-Dec-2010 End : 18-Mar-2017 Inactive FLUoxetine 10 mg oral tablet (1 source) Serotonin Reuptake Inhibitor Start: 09-02-2017 FLUoxetine HCl 10 MG Oral Tablet 1 (one) Tablet start 1 daily in am, then 2 daily for 0 days Quantity: 60 {Tablet} Refills: 3 Ordered: 02-Sep-2017 Ciesa FELIZ, Aysha Ciesa RN [facility], [facility] Start : 02-Sep-2017 Active pantoprazole 40 mg delayed release oral tablet (1 source) Proton Pump Inhibitor Start: 04-24-2007 End: 11-30-2007 take 1 tablet by mouth once daily PROTONIX, 40MG (Oral Tablet Delayed Release) 1 (one) Tablet DR qd for 0 days Refills: 0 Ordered: 24-Apr-2007 Nafisa Thomas Start : 24-Apr-2007 End : 30-Nov-2007 Inactive NEGATED: Highlighted row has not occurred!drug or medication (1 source) No Known Historical Medications Problems Active Problems Problem Classification Problem Date Documented Da te Episodic/Chronic Abdominal pain (2 sources) Epigastric pain; Translations: [Epigastric pain] Resolved: 08-19-2017 08-19-2017 Episodic Anxiety disorders (5 sources) Anxiety; Translations: [Anxiety] 09-02-2017 Chronic Past or Other Problems Problem Classification Problem Date Documented Da te Episodic/Chronic Acute and chronic tonsillitis (1 source) Acute tonsillitis; Translations: [Acute tonsillitis] Resolved: 12-03-2010 08-19-2017 Episodic Acute and chronic tonsillitis (1 source) Acute and chronic tonsillitis Neoplasms of unspecified nature or uncertain behavior (1 source) Neoplasm of uncertain behavior of skin; Translations: [Neoplasm of uncertain behavior of skin] Resolved: 08-19-2017 08-19-2017 Episodic Results Test Name Value Interpretation Reference Range Facil ity Vital Signs Date Time Vital Sign Value Performing Clinician Facility 09-02-2017 13:33-0500 BMI (Body Mass Index) 27.34 kg/m2 Corine Awaamaurymar[facility] Work Phone: 09-02-2017 13:33-0500 Body Temperature 97.4 [degF] Corine Awamarie [facility] Work Phone: 09-02-2017 13:33-0500 BP Diastolic 72 mm[Hg] Corine Sims [facility] Work Phone: Encounters Encounter Date Encounter Type Care Provider Facility Start: 09-02-2017 End: 09-02-2017 Office outpatient visit 15 minutes Corine Billingsamaurymar[facility] Start: 08-19-2017 End: 08-19-2017 Office outpatient visit 15 minutes Corine [facility]ings[facility]urymar[facility] Start: 03-18-2017 End: 03-18-2017 Office outpatient visit 15 minutes Corine [facility]urymar[facility] Start: 12-03-2010 End: 12-04-2010 Patient encounter Corine Sims [facility] Start: 09-28-2010 End: 09-30-2010 Patient encounter Corine Awa[facility]urymar[facility] Start: 04-20-2010 End: 04-20-2010 Patient encounter [facility] Start: 12-09-2007 End: 12-09-2007 Patient encounter Corine Sims [facility] Start: 11-30-2007 End: 11-30-2007 Patient encounter Corine [facility]s [facility] Start: 04-24-2007 End: 04-24-2007 Patient encounter Corine Sims [facility] Plan of Treatment Date Care Activity Detail Author [facility] Work Phone: [facility] Work Phone: [facility] Work Phone: [facility] Work Phone: Social History Date Type Detail Facility Alcohol Use [facility] Work Phone: Family History Unknown Family Member Name Dates Details Hypertension Comments:Paternal Grandmothe r, Family Members In General Status:Active Instructions Name Dates Details Palpitations : How to access health information online Indication:Palpitations Palpitations : How to access health information online - Detail Indication:Palpitations Palpitations : Patient Instr uctions Indication:Palpitations Asthma : How to access healt h information online Indication:Asthma Asthma : How to access healt h information online - Detail Indication:Asthma Asthma : Patient Instruction s Indication:Asthma Additional Source Comments FOR RECORDS PERTAINING TO PATIENTS WHO ARE OR HAVE BEEN ENROLLED IN A CHEMICAL DEPENDENCY/SUBSTANCEABUSE PROGRAM, SOME INFORMATION MAY BE OMITTED. This clinical summary was aggregated from multiple sources. Caution should be exercised in using it in the provision of clinical care. This summary normalizes information from multiple sources, and as a consequence, information in this document may materially change the coding, format and clinical context of patient data. In addition, data may be omitted in some cases. CLINICAL DECISIONS SHOULD BE BASED ON THE PRIMARY CLINICAL RECORDS. [employer] provides no warranty or guarantee of the accuracy or completeness of information in this document.
[2023-11-26 16:12] LABS: ALB/GLOB Ratio 1.2 RATIO (0.9-2.4); AST(SGOT) 20 U/L (15-37); Alanine Aminotransfer ALT/SGPT 31 U/L (13-56); Albumin, Serum 4.2 g/dL (3.2-5.0); Alkaline Phosphatase 36 U/L (45-117); Anion Gap 6 (5-15); BUN 18 mg/dL (7-18); BUN/Creat Ratio 24.1 RATIO (10-20); Calcium,Total 9.6 mg/dL (8.5-10.1); Chloride 105 mmol/L (98-107); Creatinine, Serum 0.75 mg/dL (0.55-1.02); EST Glomerular Filtration Rate 93 mL/min (>60); Est Glom Filt Rate - Afr Amer 113 mL/min (>60); Globulin 3.6 g/dL (2.2-4.2); Glucose 79 mg/dL (74-106); Potassium 3.3 mmol/L (3.5-5.1); Protein, Total 7.8 g/dL (6.4-8.2); Sodium Level 136 mmol/L (136-145)
== END | disposition home or self-care (01) ==
LOC: MFPLAB 11:28
PROVIDERS: PCP Family Medicine; Visit Provider Family Medicine
DX: R74.8 Abnormal levels of other serum enzymes (principal)
CPT/HCPCS: 36415; 80053